=== PATIENT | male | born 1955 | race Caucasian/White ===

== ENCOUNTER 2019-07-14 13:53 | Emergency (ER) | payer OTHER ==
[~2019-07-14] VITALS: Ht 170.2 cm; Wt 73.9 kg
--- NOTE | 2019-07-14 13:53 | NUR ---
PT WAS TAKEN TO BED 11
[2019-07-14 14:07] VITALS: BP 94/45
--- NOTE | 2019-07-14 14:10 | NUR ---
64/M BIBA WITH REPORTS OF WITNESSED SYCOPE APPROX 4 MINS AT HIS CARE FACILITY. . NO HEAD INJURY REPORTED. PATIENT STATES NO PAIN, GIVEN FLUIDS IN ROUTE FOR HYPOTENSION. DENIES N/V. PATIENT STATES PAIN OF 0/10 AT THIS TIME. PATIENT POSITIONED FOR COMFORT; HOB ELEVATED; BEDRAILS UP X2; BED DOWN. ER MD MADE AWARE OF PT STATUS.
[2019-07-14 15:01] LABS: BASOPHILS % (AUTO) 0.3 % (0.0-2.0); EOSINOPHILS % (AUTO) 0.3 % (0.0-4.0); HEMATOCRIT 34.7 % (36-52); HEMOGLOBIN 11.7 g/dL (12.0-18.0); LYMPHOCYTES # (AUTO) 0.8 K/uL (2.0-11.5); LYMPHOCYTES % (AUTO) 7.6 % (20.5-51.1); MEAN CORPUSCULAR HEMOGLOBIN 31 pg (27-31); MEAN CORPUSCULAR HGB CONC 34 g/dL (33-37); MEAN CORPUSCULAR VOLUME 93.1 fL (80-94); MONOCYTES # (AUTO) 0.7 K/uL (0.8-1.0); MONOCYTES % (AUTO) 6.9 % (1.7-9.3); NEUTROPHILS # (AUTO) 8.5 K/uL (1.8-7.7); NEUTROPHILS % (AUTO) 84.9 % (42.2-75.2); PLATELET COUNT (AUTO) 163 K/uL (140-450); RED BLOOD CELL COUNT(AUTO) 3.72 MIL/uL (4.20-6.10)
--- NOTE | 2019-07-14 15:48 | NUR ---
PT STATED CAN'T URENATE AT THIS TIME.
--- NOTE | 2019-07-14 16:44 | NUR ---
FAMILY AT BEDSIDE.
[2019-07-14 16:50] LABS: ANION GAP 13.2 (8-16); CARBON DIOXIDE 25.3 mmol/L (21-32); CREATININE 1.3 mg/dL (0.7-1.3); POTASSIUM 3.5 mmol/L (3.5-5.1)
[2019-07-14 16:55] LABS: PROTHROMBIN TIME 12.3 secs (10.8-13.4)
[2019-07-14 16:56] LABS: TOTAL BILIRUBIN 0.5 mg/dL (0.0-1.0)
[2019-07-14] MEDS ORDERED: PHYTONADIONE 10 MG in NACL 0.9% 50 ML IV ONE (17:15)
--- NOTE | 2019-07-14 17:27 | NUR ---
REPORTED GIVEN TO ANA REYNOLDS.
[2019-07-14] MEDS: PROTHROMBIN COMPLEX HUMAN 500 UNITS KIT IV ONE ×2 (17:41→17:52)
--- NOTE | 2019-07-14 17:43 | NUR ---
Note undone in EDM - 07/14/19 at 1753 by MED1 Patient to be transferred to ER [place]. Is being transferred due to HIGH LEVEL. Receiving facility has accepting physician and available space. ER physician has signed transfer form. Patient or responsible republican has agreed to transfer and signed form. Patient belongings inventoried and will be sent with patient. Copy of nursing notes, lab reports, EKG, Physicians Orders and X-rays to be sent with patient. Report called to ANA REYNOLDS at receiving facility. [facility] has been called for transfer. ETA is 30 MINS.
[2019-07-14 17:53] VITALS: BP 110/66
--- NOTE | 2019-07-14 17:53 | NUR ---
Patient to be transferred to ER [place]. Is being transferred due to HIGH LEVEL. Receiving facility has accepting physician and available space. ER physician has signed transfer form. Patient or responsible alliance party has agreed to transfer and signed form. Patient belongings inventoried and will be sent with patient. Copy of nursing notes, lab reports, EKG, Physicians Orders and X-rays to be sent with patient. Report called to ANA REYNOLDS at receiving facility. [facility] has been called for transfer. ETA is 30 MINS.
== END 2019-07-14 17:53 | disposition short-term general hospital (02) ==
LOC: MED 13:53
DX: S06.5X9A Traumatic subdural hemorrhage with loss of consciousness of unspecified duration, initial encounter (principal); Z90.49 Acquired absence of other specified parts of digestive tract; Z98.890 Other specified postprocedural states; W19.XXXA Unspecified fall, initial encounter; Y93.89 Activity, other specified; Y92.89 Other specified places as the place of occurrence of the external cause; Y99.8 Other external cause status
CPT/HCPCS: 36415; 70450; 71045; 80053; 84484; 85025; 85610; 85730; 93005; 96374; 99285; C9132; Q0092

== ENCOUNTER 2022-11-30 20:25 | Inpatient (IN) | payer OTHER, MEDICAID ==
[~2022-11-30] VITALS: Ht 165.1 cm; Wt 53.5 kg
[2022-11-30] MEDS ORDERED: levETIRAcetam 1,000 MG in NACL 0.9% 100 ML IV ONE (20:30)
[2022-11-30 20:57] LABS: BASOPHILS # (AUTO) 0.1 K/uL (0.00-0.22); BASOPHILS % (AUTO) 0.6 % (0.0-2.0); EOSINOPHILS # (AUTO) 0.1 K/uL (0-0.4); EOSINOPHILS % (AUTO) 0.8 % (0.0-4.0); HEMATOCRIT 31.9 % (36-52); HEMOGLOBIN 9.8 g/dL (12.0-18.0); LYMPHOCYTES # (AUTO) 0.8 K/uL (2.0-11.5); MEAN CORPUSCULAR HEMOGLOBIN 21 pg (27-31); MEAN CORPUSCULAR HGB CONC 31 g/dL (33-37); MEAN CORPUSCULAR VOLUME 68.6 fL (80-94); MONOCYTES # (AUTO) 0.6 K/uL (0.8-1.0); MONOCYTES % (AUTO) 6.5 % (1.7-9.3); NEUTROPHILS # (AUTO) 7.4 K/uL (1.8-7.7); NEUTROPHILS % (AUTO) 83.1 % (42.2-75.2); PLATELET COUNT (AUTO) 351 K/uL (140-450); RED BLOOD CELL COUNT(AUTO) 4.64 MIL/uL (4.20-6.10); RED CELL DISTRIBUTION WIDTH 20.6 % (11.6-13.7); WHITE BLOOD COUNT (AUTO) 8.9 K/uL (4.8-10.8)
[2022-11-30] MEDS ORDERED: levETIRAcetam 100 MG/ML VIAL IV ONE (21:00)
[2022-11-30 21:11] VITALS: BP 113/76
[2022-11-30 21:14] LABS: ALBUMIN 3.2 g/dL (3.4-5.0); ANION GAP 18.4 (8-16); CARBON DIOXIDE 22.6 mmol/L (21-32); CREATININE 1.4 mg/dL (0.6-1.3); TOTAL BILIRUBIN 0.4 mg/dL (0.0-1.0)
[2022-11-30] MEDS ORDERED: LORazepam 2 MG/ML VIAL IVP ONE ×2 (22:35→23:10)
--- NOTE | 2022-11-30 23:01 | NUR ---
PT IN CT
[2022-11-30] MEDS ORDERED: LORazepam 2 MG/ML VIAL ONE (23:10)
--- NOTE | 2022-11-30 23:37 | NUR ---
PT BACK FROM CT
--- NOTE | 2022-12-01 00:49 | NUR ---
PT BACK IN CT
[2022-12-01] MEDS ORDERED: SUCR1TAB35 PO (03:13)
[2022-12-01] MEDS ORDERED: ATOR20TA PO (03:13)
[2022-12-01] MEDS ORDERED: KEP500L PO (03:13)
[2022-12-01] MEDS ORDERED: ONDA-188 PO (03:13)
[2022-12-01] MEDS ORDERED: TRAZ-343 PO (03:13)
[2022-12-01] MEDS ORDERED: FLEPED RC (03:13)
[2022-12-01] MEDS ORDERED: TAMS0.4C96 PO (03:13)
[2022-12-01] MEDS ORDERED: MAGN400S60 PO (03:13)
[2022-12-01] MEDS ORDERED: NITR0.4T2 SL (03:13)
[2022-12-01] MEDS ORDERED: BISA-218 RC (03:13)
--- NOTE | 2022-12-01 04:22 | NUR ---
Patient will be admitted to care of DANIEL PASCAL. Admited to TELEMETRY. Will go to room 122-B. Belongings list completed. Report to CAMMY REYNOLDS.
--- NOTE | 2022-12-01 04:30 | NUR ---
RECEIVED PATIENT FROM ER NURSE VIA [facility] FOR CONTINUITY OF CARE. PATIENT IS NON VERBAL. ADMITTED DUE TO SEIZURE. PIV INTACT AND PATENT. WILL CONTINUE TO MONITOR
[2022-12-01 05:45] LABS: ANION GAP 10.5 (8-16); CARBON DIOXIDE 26.3 mmol/L (21-32); CREATININE 0.7 mg/dL (0.6-1.3); POTASSIUM 3.8 mmol/L (3.5-5.1)
[2022-12-01 05:50] LABS: BASOPHILS % (AUTO) 0.4 % (0.0-2.0); EOSINOPHILS % (AUTO) 0.3 % (0.0-4.0); HEMATOCRIT 28.7 % (36-52); LYMPHOCYTES # (AUTO) 1.3 K/uL (2.0-11.5); LYMPHOCYTES % (AUTO) 11.3 % (20.5-51.1); MEAN CORPUSCULAR HEMOGLOBIN 21 pg (27-31); MEAN CORPUSCULAR HGB CONC 31 g/dL (33-37); MEAN CORPUSCULAR VOLUME 67.5 fL (80-94); MONOCYTES # (AUTO) 1.4 K/uL (0.8-1.0); MONOCYTES % (AUTO) 12.4 % (1.7-9.3); NEUTROPHILS # (AUTO) 8.6 K/uL (1.8-7.7); NEUTROPHILS % (AUTO) 75.6 % (42.2-75.2); PLATELET COUNT (AUTO) 316 K/uL (140-450); RED BLOOD CELL COUNT(AUTO) 4.25 MIL/uL (4.20-6.10); RED CELL DISTRIBUTION WIDTH 20.6 % (11.6-13.7); WHITE BLOOD COUNT (AUTO) 11.3 K/uL (4.8-10.8)
--- NOTE | 2022-12-01 07:25 | NUR ---
BEDSIDE REPORT RECEIVED FROM ROLLING MACHINE OPERATOR [employer] FOR CONTINUITY OF CARE. INITIAL ASSESSMENT DONE. AWAKE. RESP. EVEN AND UNLABORED. IV SITE INTACT TO LAC. NO S/S OF PAIN OR DISCOMFORT. CALL LIGHT KEPT WITHIN REACH. WILL CONTINUE TO MONITOR.
[2022-12-01 08:00] VITALS: BP 128/71
--- NOTE | 2022-12-01 10:40 | NUR ---
RECEIVED CALLED FROM [facility] SHAWANDA [facility] SPOKE TO GRAY. ALL QUESTIONS ANSWERED.
[2022-12-01 12:00] VITALS: BP 135/80
--- NOTE | 2022-12-01 12:05 | NUR ---
PATIENT HAS BEEN SCREENED AND CATEGORIZED LOW NUTRITION RISK. PATIENT WILL BE SEEN WITHIN 7 DAYS OF ADMISSION. 12/01/22-12/08/[address]
[2022-12-01] MEDS ORDERED: ACETAMINOPHEN 325 MG TAB PO PRN (13:20)
[2022-12-01] MEDS ORDERED: ONDANSETRON 4 MG ODT PO PRN (13:20)
[2022-12-01] MEDS ORDERED: POTASSIUM CHLORIDE 10 MEQ TABER PO PRN (13:20)
[2022-12-01] MEDS ORDERED: MAGNESIUM HYDROXIDE 2400 MG/30 ML UDC PO PRN (13:20)
[2022-12-01] MEDS ORDERED: ONDANSETRON 4 MG/2 ML VIAL IVP PRN (13:20)
[2022-12-01] MEDS ORDERED: HYDROcodone/APAP 7.5/325 MG 1 TAB PO PRN (13:20)
[2022-12-01] MEDS ORDERED: MAG SULF 2000 MG/WATER PREMIX 50 ML IV PRN (13:20)
[2022-12-01 13:53] LABS: BASOPHILS # (AUTO) 0.1 K/uL (0.00-0.22); BASOPHILS % (AUTO) 0.7 % (0.0-2.0); EOSINOPHILS % (AUTO) 0.4 % (0.0-4.0); HEMATOCRIT 28.7 % (36-52); LYMPHOCYTES # (AUTO) 1.4 K/uL (2.0-11.5); LYMPHOCYTES % (AUTO) 13.9 % (20.5-51.1); MEAN CORPUSCULAR HEMOGLOBIN 21 pg (27-31); MEAN CORPUSCULAR HGB CONC 32 g/dL (33-37); MEAN CORPUSCULAR VOLUME 67.7 fL (80-94); MONOCYTES # (AUTO) 1.3 K/uL (0.8-1.0); MONOCYTES % (AUTO) 13.3 % (1.7-9.3); NEUTROPHILS % (AUTO) 71.7 % (42.2-75.2); PLATELET COUNT (AUTO) 298 K/uL (140-450); RED BLOOD CELL COUNT(AUTO) 4.24 MIL/uL (4.20-6.10); RED CELL DISTRIBUTION WIDTH 20.5 % (11.6-13.7); WHITE BLOOD COUNT (AUTO) 9.8 K/uL (4.8-10.8)
--- NOTE | 2022-12-01 13:54 | NUR ---
DC [age] YRS OLD MALE PATIENT WAS ADMITTED FROM [facility] WITH A DX OF ALOC, SEVEN, SEIZURE AND UNWITNESSED FALL. PATIENT HAS A HX OF SEIZURE, EPILEPSY, ANEURYSM, BIPOLAR, DEPRESSION ANXIETY AND HTN. CT HEAD SHOWED SUBDURAL HEMATOMA. CXR AND ABD XRAY NEGATIVE. RAPID COVID TEST NEGATIVE. ADMINISTERED IV KEPPRA AND CONTINUED HOME MEDS. CONSULTED WITH NEURO. DC PLAN TO RETURN TO [facility] WHEN STABLE CM TO FOLLOW Addendum: 12/02/22 at 1055 by JANA SUGGS CM RECEIVED ORDER FOR PATIENT TO GO BACK TO SNF FOR CONTINUE OF CARE. FAXED ALL PAPERWORK TO [facility]. SPOKE WITH DIXIE AT [facility] LOCATED AT [address] [facility] [place] [id number] WAS ACCEPTED BACK AND WILL BE GOING TO ROOM 10A UNDER DR PASCAL. TRANSPORTATION ARRANGED WITH DONNIE AT CALL THE CAR WITH A 1400 WARM IN TIME. THEY ARE INFORMED TO CALL NURSING STATION WITH ANY UPDATES.CONFIRMATION #[id number]. NURSE TAMMY AWARE OF THE ABOVE INFORMATION TRIED TO CALL [facility] THREE TIME WITH NO ANSWER AND THERE IS NOT VOICE MAIL BOX SET UP TO LEAVE MESSAGE.
[2022-12-01] MEDS: NACL 0.9% 1,000 ML IV SCH (14:12)
[2022-12-01 14:13] LABS: PROTHROMBIN TIME 11.2 secs (10.8-13.4)
[2022-12-01 14:15] LABS: CARBON DIOXIDE 27.2 mmol/L (21-32); CREATININE 0.8 mg/dL (0.6-1.3); POTASSIUM 4.2 mmol/L (3.5-5.1)
[2022-12-01 14:31] LABS: AMYLASE 139 U/L (25-115); CHOL/HDL RATIO 1.6 (1-4.5); FREE T4 (FREE THYROXINE) 1.35 ng/dL (0.76-1.46); HDL CHOLESTEROL 63 mg/dL (40-60); LDL (CALC) 31 mg/dL (60-100); LIPASE 234 U/L (73-393); PHOSPHORUS 3.6 mg/dL (2.5-4.9); THYROID STIMULATING HORMONE 2.27 uIU/mL (0.34-3.74); TRIGLYCERIDES 31 mg/dL (30-150)
[2022-12-01] MEDS ORDERED: LORazepam 2 MG/ML VIAL IM/IVP PRN (15:05)
--- NOTE | 2022-12-01 15:05 | NUR ---
EEG ONGOING AT BEDSIDE. INFORMED BY TECH, THAT PT IS BEING COMBATIVE. DR. PASCAL NOTIFIED WITH NEW ORDER: ATIVAN 1MG IVP Q8H PRN. NOTED AND CARRIED OUT.
--- NOTE | 2022-12-01 15:30 | NUR ---
PRN ATIVAN IVP WAS GIVEN BY RAUL REYNOLDS. TOLERATED WELL.
[2022-12-01 16:00] VITALS: BP 158/80
[2022-12-01] MEDS: SUCRALFATE 1 GM TAB PO SCH ×2 (17:54→21:13)
--- NOTE | 2022-12-01 17:54 | NUR ---
SCHEDULED MEDICATIONS GIVEN. TOLERATED WELL.
--- NOTE | 2022-12-01 18:32 | NUR ---
VERIFIED WITH VIDA ROSEN [facility], PT HAD ALLERGIES TO OXYCODONE, LAMOTRIGINE, HYDRALAZINE. CURRENTLY ON NORCO PRN. DR. PASCAL NOTIFIED WITH NEW ORDER: D/C NORCO. ORDER NOTED AND CARRIED OUT.
--- NOTE | 2022-12-01 19:25 | NUR ---
BEDSIDE REPORT GIVEN TO CLAIMS CONSULTANT ROSE FOR CONTINUITY OF CARE. REMAINS STABLE.
[2022-12-01 20:00] VITALS: BP 148/86
--- NOTE | 2022-12-01 20:00 | NUR ---
PT NOTED CONFUSED AND AGITATED.
[2022-12-01] MEDS ORDERED: DOCUSATE SODIUM 100 MG GELCAP PO SCH (21:00)
[2022-12-01] MEDS ORDERED: traZODone 50 MG TAB PO SCH (21:00)
[2022-12-01] MEDS: levETIRAcetam 100 MG/ML ORASYR PO SCH (21:15)
--- NOTE | 2022-12-01 21:30 | NUR ---
PT PULLED OUT IV AND WALKED OUT OF HIS ROOM.
--- NOTE | 2022-12-01 22:00 | NUR ---
IV REINSERTED BACK.
[2022-12-02] VITALS: BP 108/72
--- NOTE | 2022-12-02 02:00 | NUR ---
PT IS SLEEPING.
[2022-12-02 03:47] LABS: APPEARANCE,URINE CLEAR (CLEAR); BILIRUBIN,URINE NEGATIVE (NEGATIVE); BLOOD, URINE NEGATIVE (NEGATIVE); COLOR,URINE YELLOW (YELLOW); LEUKOCYTE ESTERASE ,URINE NEGATIVE (NEGATIVE); NITRITE, URINE NEGATIVE (NEGATIVE); UGLUCOSE NEGATIVE (NEGATIVE)
[2022-12-02 04:00] VITALS: BP 95/65
[2022-12-02 04:40] LABS: BARBITURATE, URINE NEGATIVE ng/ml (NEG <=200); BENZODIAZEPINE, URINE POSITIVE ng/mL (NEG <=200); CANNABINOID, URINE NEGATIVE ng/mL (NEG <=50); COCAINE, URINE NEGATIVE ng/mL (NEG <=300); OPIATE, URINE NEGATIVE ng/mL (NEG <=2000); PHENCYCLIDINE SCREEN,URINE NEGATIVE ng/mL (NEG <=25)
[2022-12-02 05:21] LABS: BASOPHILS # (AUTO) 0.1 K/uL (0.00-0.22); BASOPHILS % (AUTO) 0.7 % (0.0-2.0); EOSINOPHILS # (AUTO) 0.1 K/uL (0-0.4); EOSINOPHILS % (AUTO) 1.8 % (0.0-4.0); HEMATOCRIT 25.8 % (36-52); HEMOGLOBIN 8.2 g/dL (12.0-18.0); LYMPHOCYTES # (AUTO) 1.7 K/uL (2.0-11.5); LYMPHOCYTES % (AUTO) 19.9 % (20.5-51.1); MEAN CORPUSCULAR HEMOGLOBIN 22 pg (27-31); MEAN CORPUSCULAR HGB CONC 32 g/dL (33-37); MEAN CORPUSCULAR VOLUME 67.3 fL (80-94); MONOCYTES # (AUTO) 1.3 K/uL (0.8-1.0); MONOCYTES % (AUTO) 15.6 % (1.7-9.3); NEUTROPHILS # (AUTO) 5.2 K/uL (1.8-7.7); PLATELET COUNT (AUTO) 288 K/uL (140-450); RED BLOOD CELL COUNT(AUTO) 3.84 MIL/uL (4.20-6.10); RED CELL DISTRIBUTION WIDTH 20.7 % (11.6-13.7); WHITE BLOOD COUNT (AUTO) 8.3 K/uL (4.8-10.8)
[2022-12-02 05:30] LABS: PHOSPHORUS 3.4 mg/dL (2.5-4.9)
[2022-12-02 06:25] LABS: ANION GAP 11.6 (8-16); CARBON DIOXIDE 25.4 mmol/L (21-32); CREATININE 0.8 mg/dL (0.6-1.3)
[2022-12-02 08:00] VITALS: BP 114/77
--- NOTE | 2022-12-02 08:29 | NUR ---
Patient's Plan of Care was discussed and reviewed with MERCURY PURIFIER: TAMMY
--- NOTE | 2022-12-02 08:44 | NUR ---
SEEN BY DR. FOSTER, CLARIFIED BISACODYL ORDER, NEW ORDER RECEIVED, CHANGE TO PRN. ORDER NOTED AND CARRIED OUT.
[2022-12-02] MEDS ORDERED: bisacodyL 10 MG SUPP RC PRN (08:45)
[2022-12-02] MEDS ORDERED: PANTOPRAZOLE 40 MG INJ VIAL IVP SCH (09:00)
[2022-12-02] MEDS ORDERED: ATORVASTATIN 20 MG TAB PO SCH (09:00)
[2022-12-02] MEDS ORDERED: TAMSULOSIN 0.4 MG CAP PO SCH (09:00)
[2022-12-02] MEDS ORDERED: bisacodyL 10 MG SUPP RC SCH (09:00)
[2022-12-02] MEDS ORDERED: KEP500L PO (09:16)
[2022-12-02] MEDS: NACL 0.9% 1,000 ML IV SCH (09:20)
--- NOTE | 2022-12-02 09:35 | NUR ---
SEEN BY DR. PAUL.
[2022-12-02] MEDS: SUCRALFATE 1 GM TAB PO SCH ×2 (09:43→13:44)
[2022-12-02] MEDS: levETIRAcetam 100 MG/ML ORASYR PO SCH (09:43)
--- NOTE | 2022-12-02 09:43 | NUR ---
SCHEDULED MEDICATIONS GIVEN. TOLERATED WELL.
--- NOTE | 2022-12-02 12:06 | NUR ---
CALLED JOHN GOMES, NO ANSWER. VOICEMAIL NOT SET UP.
--- NOTE | 2022-12-02 12:15 | NUR ---
CALLED [facility] REPORT GIVEN TO NICHOLE.
--- NOTE | 2022-12-02 14:06 | NUR ---
PT LEFT. [facility]. TRANSPORTED BY [facility], ACCOMPANIED BY 2 MALE TRANSPORTER. ALERT AND VERBALLY RESPONSIVE. RESP. EVEN AND UNLABORED. SKIN INTACT. ID BAND AND IV REMOVED. DISCHARGE PAPERWORKS GIVEN TO TRANSPORTER. NO PERSONAL BELONGINGS TAKEN. REMAINS STABLE.
== END 2022-12-02 14:06 | DRG 100 ==
LOC: MED 20:25 → MTU 12-01 03:51
PROC: 4A10X4Z Monitoring of Central Nervous Electrical Activity, External Approach (ICD-10-PCS; principal; 2022-12-02)
DX: G40.909 Epilepsy, unspecified, not intractable, without status epilepticus (principal); N17.0 Acute kidney failure with tubular necrosis; S06.5X0A Traumatic subdural hemorrhage without loss of consciousness, initial encounter; E44.1 Mild protein-calorie malnutrition; E87.1 Hypo-osmolality and hyponatremia; Z68.1 Body mass index [BMI] 19.9 or less, adult; I10 Essential (primary) hypertension; W19.XXXA Unspecified fall, initial encounter; F32.A Depression, unspecified; F41.9 Anxiety disorder, unspecified; D50.9 Iron deficiency anemia, unspecified; Z20.822 Contact with and (suspected) exposure to COVID-19; Z90.49 Acquired absence of other specified parts of digestive tract; Z88.5 Allergy status to narcotic agent; Z88.8 Allergy status to other drugs, medicaments and biological substances
CPT/HCPCS: 36415; 70360; 70450; 71045; 74018; 80048; 80053; 80305; 81003; 82140; 82150; 82550; 83036; 83605; 83690; 83735; 83880; 84100; 84439; 84443; 84484; 85025; 85610; 85730; 87040; 87081; 87086; 96365; 96375; 96376; 99285; C9113; J1953; J2060; Q0092